=== PATIENT | male | born 1975 | race Caucasian/White ===

== ENCOUNTER 2019-12-18 14:26 | Emergency (ER) | payer MEDICAID ==
[~2019-12-18] VITALS: Ht 193 cm; Wt 103.0 kg
--- NOTE | 2019-12-18 14:35 | NUR ---
PT IS IN ROOM #1B. DR FREEMAN EVALUATED THE PT.
[2019-12-18] MEDS ORDERED: ONDANSETRON 4 MG/2 ML VIAL IV ONE (14:45)
[2019-12-18] MEDS ORDERED: HYDROMORPHONE 1 MG/1 ML DISP.SYRIN IV ONE (14:45)
[2019-12-18] MEDS ORDERED: IV NORMAL SALINE 1000 ML BAG IV ONE (14:45)
[2019-12-18 14:58] LABS: BASOPHILS % (AUTO) 0.9 % (0.0-2.0); EOSINOPHILS # (AUTO) 0.2 K/uL (0.0-0.7); EOSINOPHILS % (AUTO) 3.7 % (0.0-7.0); HEMATOCRIT 41.7 % (36.7-47.1); HEMOGLOBIN 14.1 g/dL (12.5-16.3); LYMPHOCYTES # (AUTO) 1.8 K/uL (20.0-40.0); LYMPHOCYTES % (AUTO) 33.5 % (20.5-51.5); MEAN CORPUSCULAR HEMOGLOBIN 31.5 uug (23.8-33.4); MEAN CORPUSCULAR HGB CONC 34 g/dL (32.5-36.3); MEAN CORPUSCULAR VOLUME 93.1 fL (73.0-96.2); MONOCYTES # (AUTO) 0.6 K/uL (2.0-10.0); MONOCYTES % (AUTO) 10.8 % (0.0-11.0); NEUTROPHILS # (AUTO) 2.8 K/uL (1.8-8.9); NEUTROPHILS % (AUTO) 51.1 % (38.5-71.5); PLATELET COUNT (AUTO) 280 K/uL (152-348); RED BLOOD CELL COUNT(AUTO) 4.48 MIL/uL (4.06-5.63); WHITE BLOOD COUNT (AUTO) 5.4 K/uL (3.6-10.2)
--- NOTE | 2019-12-18 15:04 | NUR ---
Pt at CT accompanied by tech.RA KAYCE ARSHADS
[2019-12-18 15:06] LABS: CREATININE 0.9 mg/dL (0.6-1.3); POTASSIUM 3.7 mmol/L (3.5-5.1)
[2019-12-18] MEDS ORDERED: HYDROMORPHONE 2 MG/1 ML DISP.SYRIN ONE (15:06)
[2019-12-18] MEDS ORDERED: ONDANSETRON 4 MG/2 ML VIAL ONE (15:06)
--- NOTE | 2019-12-18 15:10 | NUR ---
Pt back from CT via gurney accompanied by tech. Pt NAD VSS RA c/o pain to L armpit radiating to L chest anterior upon movement. Pt able to tolerate medications as ordered without adverse/anaphylactic reactions
[2019-12-18 15:13] LABS: BILIRUBIN,DIRECT 0.3 mg/dL (0.0-0.2); BILIRUBIN,TOTAL 0.8 mg/dL (0.2-1.0); TOTAL PROTEIN, SERUM 7.3 g/dL (6.4-8.2)
--- NOTE | 2019-12-18 15:35 | NUR ---
Reports significant relief of pain, no s/s of adverse/anaphylactic reactions Patient discharged to home in stable condition. Written and verbal after care instructions given. Patient verbalizes understanding of instructions. Stressed follow up or return to ER for worsening s/s. Girlfriend will drive him home.
[2019-12-18 16:06] VITALS: BP 148/72
== END 2019-12-18 16:00 | disposition home or self-care (01) ==
LOC: ER 14:31
DX: R07.89 Other chest pain (principal); W19.XXXA Unspecified fall, initial encounter; Y92.89 Other specified places as the place of occurrence of the external cause; M50.022 Cervical disc disorder at C5-C6 level with myelopathy; M25.512 Pain in left shoulder; M54.2 Cervicalgia
CPT/HCPCS: 36415; 70030-TC; 70450; 71045; 72125; 83690; 85025; 85730; 93005; A4663; J1170; J2405

== ENCOUNTER 2021-04-05 01:29 | Emergency (ER) | payer MEDICAID ==
[~2021-04-05] VITALS: Ht 193 cm; Wt 104.3 kg
[2021-04-05] MEDS ORDERED: IBUPROFEN 800 MG TABLET PO ONE (02:30)
[2021-04-05] MEDS ORDERED: AMOXICILLIN-CLAVUL 500-125MG TABLET PO ONE (02:30)
[2021-04-05] MEDS ORDERED: AMOXICILLIN-CLAVUL 500-125MG TABLET ONE (02:42)
[2021-04-05] MEDS ORDERED: IBUPROFEN 800 MG TABLET ONE (02:43)
[2021-04-05] MEDS ORDERED: IBUP-1957 PO (02:55)
[2021-04-05] MEDS ORDERED: AMOX-427 PO (02:55)
--- NOTE | 2021-04-05 03:02 | NUR ---
Patient discharged to home in stable condition. Written and verbal after care instructions given. Patient verbalizes understanding of instructions. Stressed follow up or return to ER for worsening s/s.
== END 2021-04-05 03:03 | disposition home or self-care (01) ==
LOC: ER 01:40
DX: S51.852A Open bite of left forearm, initial encounter (principal); W54.0XXA Bitten by dog, initial encounter; Y93.01 Activity, walking, marching and hiking; Y92.89 Other specified places as the place of occurrence of the external cause; Z72.0 Tobacco use; R03.0 Elevated blood-pressure reading, without diagnosis of hypertension
CPT/HCPCS: A4663

== ENCOUNTER 2021-07-20 21:42 | Emergency (ER) | payer MEDICAID ==
[~2021-07-20] VITALS: Ht 193 cm; Wt 102.1 kg
[~2021-07-20 21:42] MED LIST: AMOX-427 PO; IBUP-1957 PO
--- NOTE | 2021-07-20 21:52 | NUR ---
PT AMBULATED TO ER C/O RIGHT HAND PAIN AFTER FALLING AT WORK, NOTED TO BE SWOLLEN BUT ABLE TO MOVE EXTREMITY. DR. IVERSON AT BEDSIDE, MSE IN PROGRESS.
[2021-07-20] MEDS ORDERED: OXYCODONE/APAP 5-325 MG TABLET PO ONE (22:00)
[2021-07-20] MEDS ORDERED: ONDANSETRON ODT 4 MG TAB.RAPDIS SL ONE (22:00)
[2021-07-20] MEDS ORDERED: ONDANSETRON ODT 4 MG TAB.RAPDIS ONE (22:03)
[2021-07-20] MEDS ORDERED: OXYCODONE/APAP 5-325 MG TABLET ONE (22:03)
--- NOTE | 2021-07-20 22:07 | NUR ---
XRAY AT BEDSIDE.
[2021-07-20] MEDS ORDERED: HYDR-4209 PO (23:18)
--- NOTE | 2021-07-20 23:33 | NUR ---
Patient discharged to home in stable condition. Written and verbal after care instructions given. Patient verbalizes understanding of instructions. Stressed follow up or return to ER for worsening s/s. Steady gait, denies any pain/discomfort upon discharge. No changes in LOC.
[2021-07-20 23:34] VITALS: BP 132/86
== END 2021-07-20 23:34 | disposition home or self-care (01) ==
LOC: ER 21:42
DX: S60.221A Contusion of right hand, initial encounter (principal); W19.XXXA Unspecified fall, initial encounter; Y92.69 Other specified industrial and construction area as the place of occurrence of the external cause; Y99.0 Civilian activity done for income or pay; F17.210 Nicotine dependence, cigarettes, uncomplicated; S62.610D Displaced fracture of proximal phalanx of right index finger, subsequent encounter for fracture with routine healing
CPT/HCPCS: 73090; 73130; A4663; Q0162